=== PATIENT | male | born 1950 | race Caucasian/White ===

== ENCOUNTER 2024-09-15 08:00 | Day surgery (SDC) | payer OTHER, SELFPAY ==
[2024-09-15 07:39] VITALS: BMI 41.1
[2024-09-15 07:40] VITALS: BMI 41.1
[2024-09-15 08:13] VITALS: BP 115/81
[2024-09-15 08:21] LABS: Glucose - Point of Care 87 mg/dl (70-99)
[2024-10-22 06:59] LABS: Glucose - Point of Care 111 mg/dl (70-99)
== END 2024-09-15 09:00 | disposition home or self-care (01) ==
LOC: SDS 08:00
PROVIDERS: ATTENDING PHYSICIAN Internal Medicine Gastroenterology
DX: K63.5 Polyp of colon (principal); Z53.9 Procedure and treatment not carried out, unspecified reason
CPT/HCPCS: 82962

== ENCOUNTER 2024-10-22 07:36 | Day surgery (SDC) | payer OTHER, SELFPAY ==
[2024-10-22 07:50] VITALS: BP 146/79
[2024-10-22 07:59] VITALS: BMI 41.2
[2024-10-22 09:54] VITALS: BP 121/73
[2024-10-22 10:00] VITALS: BP 131/76
[2024-10-22 10:15] VITALS: BP 122/68
[2024-10-22 10:30] VITALS: BP 116/68
== END 2024-10-22 10:49 | disposition home or self-care (01) ==
LOC: SDS 07:36
PROVIDERS: ATTENDING PHYSICIAN Internal Medicine Gastroenterology
DX: D12.3 Benign neoplasm of transverse colon (principal); K63.5 Polyp of colon; K64.0 First degree hemorrhoids; D12.6 Benign neoplasm of colon, unspecified
CPT/HCPCS: 45390; 88305